=== PATIENT | female | born 1940 | race African-American/Black ===

== ENCOUNTER 2018-05-21 12:16 | Inpatient (IN) | payer MEDICAID, OTHER ==
[~2018-05-21] VITALS: Ht 162.6 cm; Wt 58.5 kg
[2018-05-21 14:43] LABS: CLARITY URINE CLEAR (CLEAR); COLOR URINE YELLOW (YELLOW); KETONES URINE NEGATIVE (NEGATIVE); LEUKOCYTE ESTERASE URINE 2+ (NEGATIVE); NITRITE URINE NEGATIVE (NEGATIVE); OCCULT BLOOD URINE NEGATIVE (NEGATIVE); PROTEIN URINE NEGATIVE (NEGATIVE); SPECIFIC GRAVITY URINE 1.009 (1.005-1.030); UROBILINOGEN URINE 0.2 E.U./dL (0.2-1.0)
[2018-05-21 14:48] LABS: BASOPHILS % 0.5 % (0.0-2.0); EOSINOPHILS % 0.5 % (0.0-5.0); HEMATOCRIT. 38.1 % (36.0-48.0); HEMOGLOBIN. 12.4 g/dL (12.0-16.0); LYMPHOCYTES % 16.3 % (20.0-50.0); MEAN CORPUSCULAR HEMOGLOBIN 26.3 pg (28.0-32.0); MEAN CORPUSCULAR VOLUME 80.6 fL (81.0-99.0); MEAN PLATELET VOLUME 7.6 fl (7.4-10.4); MONOCYTES % 5.7 % (2.0-8.0); PLATELET 297 x1000/uL (130-400); RED BLOOD CELL COUNT 4.73 mill/uL (4.2-5.4); RED CELL DISTRIBUTION WIDTH 14.7 % (11.6-14.6)
[2018-05-21 14:54] LABS: CHLORIDE 105 mEq/L (98-107)
[2018-05-21] MEDS ORDERED: CEFTRIAXONE 1 G PREMIX 50 ML IV ONE (15:00)
[2018-05-21] MEDS ORDERED: SODIUM CHLORIDE 0.9% 250 ML IV ONE (15:57)
[2018-05-21] MEDS ORDERED: NA PHOS,M-B/NA PHOS,DI-BA ENEMA 118ML PR PRN (16:30)
[2018-05-21] MEDS ORDERED: ACETAMINOPHEN 325MG TABLET PO PRN (16:30)
[2018-05-21] MEDS ORDERED: DOCUSATE SODIUM 100MG CAPSULE PO PRN (16:30)
[2018-05-21] MEDS ORDERED: ONDANSETRON HCL 4MG/2ML INJ IV PRN (16:30)
[2018-05-21] MEDS ORDERED: MAGNESIUM/ALUMINUM HYDROXIDE/SIMETHICONE 30ML UDC PO PRN (16:30)
[2018-05-21] MEDS ORDERED: GUAIFENESIN 200MG/10ML SUGAR FREE UDC PO PRN (16:30)
[2018-05-21] MEDS ORDERED: IPRATROPIUM/ALBUTEROL 0.5-3(2.5)MG/3ML NEB INH PRN (16:30)
[2018-05-21] MEDS ORDERED: CLONIDINE 0.1MG TABLET PO PRN (16:30)
[2018-05-21] MEDS ORDERED: NITROGLYCERIN 0.4MG TABLET SL SL PRN (16:30)
[2018-05-21] MEDS ORDERED: DEXTROSE 50% WATER 50ML SYRINGE IV PRN (17:24)
[2018-05-21] MEDS ORDERED: SODIUM CHLORIDE 0.9% 1,000 ML IV SCH (17:30)
[2018-05-21 17:46] VITALS: BP 132/79
[2018-05-21 18:20] LABS: T4 FREE 1.18 ng/dL (0.76-1.46)
[2018-05-21] MEDS: ENOXAPARIN 40MG/0.4ML SYR SUBCUT SCH (18:27)
[2018-05-21 18:38] LABS: FOLIC ACID (FOLATE) SERUM >20 ng/mL ng/mL (>5.38); VITAMIN B12 SERUM 140 pg/mL (211-911)
[2018-05-21 20:00] VITALS: BP 120/55
[2018-05-21] MEDS: BLOOD SUGAR DIAGNOSTIC STRIP TEST SCH ×2 (21:00→21:47)
[2018-05-21] MEDS: INSULIN LISPRO 100 UNITS/ML SUBCUT SCH (21:00)
[2018-05-21] MEDS: FAMOTIDINE 20MG TABLET PO SCH (21:46)
[2018-05-21] MEDS: ASCORBIC ACID 500 MG TABLET PO SCH (21:46)
[2018-05-21] MEDS: LEVOFLOXACIN 500MG PREMIX 100 ML IV NR (21:46)
[2018-05-21 21:57] LABS: CREATINE KINASE 152 IU/L (26-192); CREATINE KINASE MB FRACTION 1.9 ng/mL (0.5-3.6)
[2018-05-22] VITALS: BP 107/48
[2018-05-22 04:00] VITALS: BP 139/82
[2018-05-22] MEDS ORDERED: ACET650S27 RC (05:53)
[2018-05-22] MEDS ORDERED: LORA10TA7 MT (05:53)
[2018-05-22] MEDS ORDERED: CALC-3 MT (05:53)
[2018-05-22] MEDS ORDERED: LEVO75TA7 PO (05:53)
[2018-05-22] MEDS ORDERED: LISI2.5T47 PO (05:53)
[2018-05-22] MEDS ORDERED: SIMV5TAB53 MT (05:53)
[2018-05-22] MEDS ORDERED: ASPI-1159 MT (05:53)
[2018-05-22] MEDS ORDERED: MULT1TAB67 MT (05:53)
[2018-05-22 08:00] VITALS: BP 172/70
[2018-05-22] MEDS: ASCORBIC ACID 500 MG TABLET PO SCH ×2 (08:23→22:29)
[2018-05-22] MEDS: ZINC SULFATE 220 MG ( 50 ) CAPSULE PO SCH (08:24)
[2018-05-22] MEDS: ASPIRIN 325MG EC TABLET PO SCH (08:24)
[2018-05-22 10:13] LABS: CREATINE KINASE 131 IU/L (26-192); CREATINE KINASE MB FRACTION 1.5 ng/mL (0.5-3.6)
[2018-05-22] MEDS: BLOOD SUGAR DIAGNOSTIC STRIP TEST SCH ×3 (11:11→21:00)
[2018-05-22] MEDS: INSULIN LISPRO 100 UNITS/ML SUBCUT SCH ×3 (12:20→21:00)
[2018-05-22 12:46] VITALS: BP 161/74
[2018-05-22] MEDS ORDERED: CEFTRIAXONE 1 G PREMIX 50 ML IV SCH ×2 (15:00→18:00)
[2018-05-22] MEDS ORDERED: LEVO75TA7 MT (16:33)
[2018-05-22] MEDS: LISINOPRIL 2.5MG TABLET PO SCH (16:42)
[2018-05-22 16:44] VITALS: BP 151/73
[2018-05-22] MEDS: ENOXAPARIN 40MG/0.4ML SYR SUBCUT SCH (17:17)
[2018-05-22 20:00] VITALS: BP 117/82
[2018-05-22] MEDS ORDERED: LEVOFLOXACIN 250MG PREMIX 50 ML IV SCH (20:00)
[2018-05-22] MEDS: LEVOFLOXACIN 500MG PREMIX 100 ML IV NR (20:00)
[2018-05-22] MEDS: FAMOTIDINE 20MG TABLET PO SCH (22:30)
[2018-05-23] VITALS: BP 115/66
[2018-05-23 04:00] VITALS: BP 115/70
[2018-05-23 08:00] VITALS: BP 148/62
[2018-05-23] MEDS: LISINOPRIL 2.5MG TABLET PO SCH (08:47)
[2018-05-23] MEDS: ZINC SULFATE 220 MG ( 50 ) CAPSULE PO SCH (08:48)
[2018-05-23] MEDS: ASCORBIC ACID 500 MG TABLET PO SCH (08:48)
[2018-05-23] MEDS: ASPIRIN 325MG EC TABLET PO SCH (08:50)
[2018-05-23] MEDS ORDERED: CYANOCOBALAMIN 1000MCG/ML VIAL IM SCH (09:30)
[2018-05-23 09:55] VITALS: BP 148/62
== END 2018-05-23 10:29 | disposition home or self-care (01) | DRG 720 ==
LOC: ER 12:16 → 8WST 16:04 → EDBEDREQ 16:05 → ENRESERV 16:20 → SUPCPDRO 16:23
PROVIDERS: ADMIT Internal Medicine; ATTEND Internal Medicine
DX: A41.9 Sepsis, unspecified organism (principal); G92 Toxic encephalopathy; E11.9 Type 2 diabetes mellitus without complications; N39.0 Urinary tract infection, site not specified; E03.9 Hypothyroidism, unspecified; Z79.4 Long term (current) use of insulin; Z79.82 Long term (current) use of aspirin; Z79.899 Other long term (current) drug therapy
CPT/HCPCS: 36415; 70551; 71045; 80061; 82550; 82553; 82607; 82746; 82962; 83036; 83540; 83550; 83605; 83735; 83880; 84439; 84443; 84484; 93005; 93306; 93970; 96365; 97162; 99285; C1893; J0696; J1650; J1956; J3420; J7030; J7040; J7050

== ENCOUNTER 2018-12-19 18:48 | Emergency (ER) | payer MEDICAID, OTHER ==
[~2018-12-19] VITALS: Ht 160 cm; Wt 72.0 kg
[~2018-12-19 18:48] MED LIST: ACET650S27 RC; ASPI-1393 MT; CALC-3 MT; LEVO75TA7 MT; LEVO75TA7 PO; LISI2.5T47 PO; LORA10TA7 MT; MULT1TAB67 MT; SIMV5TAB58 MT
[2018-12-19] MEDS ORDERED: SODIUM CHLORIDE 0.9% 250 ML IV ONE (19:15)
[2018-12-19 21:29] LABS: CLARITY URINE CLOUDY (CLEAR); COLOR URINE YELLOW (YELLOW); KETONES URINE 1+ (NEGATIVE); LEUKOCYTE ESTERASE URINE 2+ (NEGATIVE); NITRITE URINE NEGATIVE (NEGATIVE); OCCULT BLOOD URINE NEGATIVE (NEGATIVE); PH URINE 6.5 (4.5-8.0); PROTEIN URINE TRACE (NEGATIVE); UROBILINOGEN URINE 0.2 E.U./dL (0.2-1.0)
[2018-12-19 21:37] LABS: BASOPHILS % 0.5 % (0.0-2.0); EOSINOPHILS % 0.2 % (0.0-5.0); HEMATOCRIT. 34.2 % (36.0-48.0); HEMOGLOBIN. 11.4 g/dL (12.0-16.0); LYMPHOCYTES % 9.6 % (20.0-50.0); MEAN CORPUSCULAR VOLUME 78.2 fL (81.0-99.0); MEAN PLATELET VOLUME 7.2 fl (7.4-10.4); MONOCYTES % 5.6 % (2.0-8.0); NEUTROPHILS % 84.1 % (40.0-76.0); PLATELET 256 x1000/uL (130-400); RED BLOOD CELL COUNT 4.38 mill/uL (4.2-5.4); RED CELL DISTRIBUTION WIDTH 14.2 % (11.6-14.6)
[2018-12-19 21:40] LABS: CHLORIDE 88 mEq/L (98-107)
[2018-12-19 21:43] LABS: PROTHROMBIN TIME 10.5 sec (9.6-11.0)
[2018-12-19] MEDS ORDERED: CEFTRIAXONE 1 G PREMIX 50 ML IV ONE (21:45)
[2018-12-19 21:49] LABS: CREATINE KINASE 355 IU/L (26-192)
[2018-12-19 21:52] LABS: CREATINE KINASE MB FRACTION 5.5 ng/mL (0.5-3.6)
[2018-12-19] MEDS ORDERED: CEFTRIAXONE 1 G PREMIX 50 ML IV NR (23:15)
[2018-12-20 01:01] VITALS: BP 147/73
== END 2018-12-20 02:15 | disposition short-term general hospital (02) ==
LOC: ER 19:06
DX: N39.0 Urinary tract infection, site not specified (principal); G93.40 Encephalopathy, unspecified; E11.9 Type 2 diabetes mellitus without complications; I10 Essential (primary) hypertension; Z79.82 Long term (current) use of aspirin; Z79.899 Other long term (current) drug therapy
CPT/HCPCS: 36415; 70450; 71045; 80053; 81003; 82550; 82553; 83690; 83880; 84443; 84484; 85025; 85610; 93005; 99285; A4217; J0696; J7050; P9612; Z7610; A4315

== ENCOUNTER 2019-04-08 12:26 | Emergency (ER) | payer OTHER ==
[~2019-04-08] VITALS: Ht 162.6 cm; Wt 64.0 kg
[2019-04-08] MEDS ORDERED: MORPHINE SULFATE 2 MG/ML CPJ (NOT FOR IM USE) IV ONE (15:30)
[2019-04-08 16:13] LABS: BASOPHILS % 0.7 % (0.0-2.0); EOSINOPHILS % 0.4 % (0.0-5.0); HEMATOCRIT. 40.3 % (36.0-48.0); HEMOGLOBIN. 13.1 g/dL (12.0-16.0); LYMPHOCYTES % 23.9 % (20.0-50.0); MEAN CORPUSCULAR VOLUME 80.1 fL (81.0-99.0); MEAN PLATELET VOLUME 6.9 fl (7.4-10.4); MONOCYTES % 4.2 % (2.0-8.0); NEUTROPHILS % 70.8 % (40.0-76.0); PLATELET 265 x1000/uL (130-400); RED BLOOD CELL COUNT 5.03 mill/uL (4.2-5.4); RED CELL DISTRIBUTION WIDTH 15.2 % (11.6-14.6)
[2019-04-08 16:16] LABS: CHLORIDE 104 mEq/L (98-107)
[2019-04-08 19:33] VITALS: BP 130/70
== END 2019-04-08 19:46 | disposition short-term general hospital (02) ==
LOC: ER 12:26
DX: R55 Syncope and collapse (principal); R07.89 Other chest pain
CPT/HCPCS: 36415; 71045; 80053; 83880; 84484; 85025; 93005; 96374; 99285; J2270